=== PATIENT | female | born 1965 | race American Indian/Alaskan Native ===

== ENCOUNTER 2019-09-25 17:23 | Emergency (ER) | payer SELFPAY ==
[2019-09-25] MEDS ORDERED: oxyCODONE /ACETAMINOPHEN 5-325MG TAB PO ONE (19:20)
[2019-09-25 19:46] LABS: Hematocrit 35.3 % (30.3-42.9); Hemoglobin 11.5 gm/dl (10.1-14.3); Mean Corpuscular HGB Conc 33 % (30-34); Mean Corpuscular Volume 96 fl (79-97); Platelet Count 228 K/mm3 (140-440); Red Blood Count 3.69 M/mm3 (3.65-5.03); Red Cell Distribution Width 17.2 % (13.2-15.2)
[2019-09-25 20:06] LABS: BUN/Creatinine Ratio 15; Blood Urea Nitrogen 9 mg/dL (7-17); Calcium 9.1 mg/dL (8.4-10.2); Hemolysis Index 9
[2019-09-25] MEDS ORDERED: POTASSIUM CHLORIDE ER 20 MEQ TAB PO ONE (20:08)
[2019-09-25] MEDS ORDERED: MAGNESIUM OXIDE 400 MG TAB PO ONE (20:08)
[2019-09-25 20:30] LABS: Total Cells Counted 100
[2019-09-25 20:31] LABS: Basophils % (Manual) 0 % (0.0-1.8)
[2019-09-25 20:32] LABS: Anisocytosis Few; Platelet Estimate Consistent w Auto
--- NOTE | 2019-09-25 20:52 | Emergency Department Report ---
ED Extremity Problem HPI - General Chief complaint: Extremity Problem,Nontraumatic Stated complaint: LEG PAIN Time Seen by Provider: 09/25/19 18:35 Source: patient, family, EMS Mode of arrival: Stretcher Limitations: No Limitations - History of Present Illness Initial comments: 54-year-old female with a past medical history of migraines, CHF, hypertension, A. fib, anxiety, major depressive disorder as well as chronic pains presents to hospital complaining of ongoing bilateral thigh and hamstring pain since exercising. Patient has been wheelchair-bound and unable to ambulate with a cognitive deficit/memory problem since gallbladder removal surgery and June. Patient has had bilateral leg pain for the past 3 weeks since she has been undergoing h physical therapy at home in [place]. Patient has been in the [place] area for the past week and been trying to continue her physical therapy exercises at home. Patient states that today while exercising the pain has worsened and rated 9/10 in intensity. Patient is on Eliquis and has been com pliant. No reports of chest pain or shortness of breath. It is unclear patient is on chronic pain medication in [place] but apparently she does not have any pain medications currently. Patient also complains of pain and burning sensation to bilateral feet. Severity scale (0 -10): 9 - Related Data Previous Rx's Medication Instructions Recorded Last Taken Type Docusate Sodium [Colace] 100 mg PO BID PRN #20 capsule 09/25/19 Unknown Rx HYDROcodone/APAP 5-325 [[place] 1 each PO Q6HR PRN #20 tablet 09/25/19 Unknown Rx 5/325] Magnesium Oxide [Magnesium] 400 mg PO BID #8 capsule 09/25/19 Unknown Rx Potassium Chloride [K-Dur] 20 meq PO BID #8 tab 09/25/19 Unknown Rx Allergies Allergy/AdvReac Type Severity Reaction Status Date / Time codeine Allergy Swelling Verified 09/25/19 17:52 ED Review of Systems ROS: Stated complaint: LEG PAIN Other details as noted in HPI Comment: All other systems reviewed and negative ED Past Medical Hx - Past Medical History Previous Medical History?: Yes Hx Hypertension: Yes Hx Congestive Heart Failure: Yes Hx Headaches / Migraines: Yes Hx Psychiatric Treatment: (MDD, anxiety) Additional medical history: Afib - Surgical History Past Surgical History?: Yes Hx Cholecystectomy: Yes Additional Surgical History: hernia - Social History Smoking Status: Never Smoker Substance Use Type: None - Medications Home Medications: Home Medications Medication Instructions Recorded Confirmed Last Taken Type Docusate Sodium [Colace] 100 mg PO BID PRN #20 capsule 09/25/19 Unknown Rx HYDROcodone/APAP 5-325 [[place] 1 each PO Q6HR PRN #20 tablet 09/25/19 Unknown Rx 5/325] Magnesium Oxide [Magnesium] 400 mg PO BID #8 capsule 09/25/19 Unknown Rx Potassium Chloride [K-Dur] 20 meq PO BID #8 tab 09/25/19 Unknown Rx ED Physical Exam - General Limitations: No Limitations - Other Other exam information: General: No acute distress Head: Atraumatic Eyes: normal appearance ENT: Moist mucous membranes Neck: Normal appearance, no midline tenderness Chest: Clear to auscultation bilaterally CV: Regular rate and rhythm Abdomen: Soft, normal bowel sounds, nontender, nondistended, no rebound or guarding Back: Normal inspection Extremity: No edema noted. Patient able to lift both legs off the bed but unable to sustain this movement. No calf tenderness, no leg edema, no leg asymmetry. Positive tenderness to palpation of her anterior thigh muscles and hamstrings. No joint tenderness to hip, knee, or ankles. 2+ bilateral DP pulses. Neuro: Alert O x 3, no facial asymmetry, speech clear, no gross motor sensory deficit Psych: Appropriate behavior Skin: No rash ED Course Vital Signs 09/25/19 09/25/19 09/25/19 18:13 18:14 21:36 Temperature 98.8 F Pulse Rate 107 H 84 Respiratory 16 16 16 Rate Blood Pressure 133/81 102/62 [Left] O2 Sat by Pulse 100 98 Oximetry ED Medical Decision Making - Lab Data Result diagrams: 09/25/19 19:28 09/25/19 19:28 Lab Results 09/25/19 09/25/19 Range/Units 19:28 19:28 WBC 4.9 (4.5-11.0) K/mm3 RBC 3.69 (3.65-5.03) M/mm3 Hgb 11.5 (10.1-14.3) gm/dl Hct 35.3 (30.3-42.9) % MCV 96 (79-97) fl MCH 31 (28-32) pg MCHC 33 (30-34) % RDW 17.2 H (13.2-15.2) % Plt Count 228 (140-440) K/mm3 [place] % (Auto) Manager Floral Add Manual Diff Complete Total Counted 100 Seg Neuts % (Manual) 57.0 (40.0-70.0) % Band Neutrophils % 0 % Lymphocytes % (Manual) 31.0 (13.4-35.0) % Reactive Lymphs % (Man) 0 % Monocytes % (Manual) 9.0 H (0.0-7.3) % Eosinophils % (Manual) 3.0 (0.0-4.3) % Basophils % (Manual) 0 (0.0-1.8) % Metamyelocytes % 0 % Myelocytes % 0 % Promyelocytes % 0 % Blast Cells % 0 % Nucleated RBC % Not Reportable Seg Neutrophils # Man 2.8 (1.8-7.7) K/mm3 Band Neutrophils # 0.0 K/mm3 Lymphocytes # (Manual) 1.5 (1.2-5.4) K/mm3 Abs React Lymphs (Man) 0.0 K/mm3 Monocytes # (Manual) 0.4 (0.0-0.8) K/mm3 Eosinophils # (Manual) 0.1 (0.0-0.4) K/mm3 Basophils # (Manual) 0.0 (0.0-0.1) K/mm3 Metamyelocytes # 0.0 K/mm3 Myelocytes # 0.0 K/mm3 Promyelocytes # 0.0 K/mm3 Blast Cells # 0.0 K/mm3 WBC Morphology Not Reportable Hypersegmented Neuts Not Reportable Hyposegmented Neuts Not Reportable Hypogranular Neuts Not Reportable Smudge Cells Not Reportable Toxic Granulation Not Reportable Toxic Vacuolation Not Reportable Dohle Bodies Not Reportable Pelger-Huet Anomaly Not Reportable Mary Rods Not Reportable Platelet Estimate Consistent w auto Clumped Platelets Not Reportable Plt Clumps, EDTA Not Reportable Large Platelets Not Reportable Giant Platelets Not Reportable Platelet Satelliting Not Reportable Plt Morphology Comment Not Reportable RBC Morphology Not Reportable Dimorphic RBCs Not Reportable Polychromasia Not Reportable Hypochromasia Not Reportable Poikilocytosis Not Reportable Anisocytosis Few Microcytosis Not Reportable Macrocytosis Not Reportable Spherocytes Not Reportable Pappenheimer Bodies Not Reportable Sickle Cells Not Reportable Target Cells Not Reportable Tear Drop Cells Not Reportable Ovalocytes Not Reportable Helmet Cells Not Reportable Melo-[place] Bodies Not Reportable [place] Rings Not Reportable [place] Cells Not Reportable Bite Cells Not Reportable Crenated Cell Not Reportable Elliptocytes Not Reportable Acanthocytes (Spur) Not Reportable Rouleaux Not Reportable Hemoglobin C Crystals Not Reportable Schistocytes Not Reportable Malaria parasites Not Reportable Haresh Bodies Not Reportable Hem Pathologist Commnt No Sodium 143 (137-145) mmol/L Potassium 3.0 L (3.6-5.0) mmol/L Chloride 109.1 H (98-107) mmol/L Carbon Dioxide 20 L (22-30) mmol/L Anion Gap 17 mmol/L BUN 9 (7-17) mg/dL Creatinine 0.6 L (0.7-1.2) mg/dL Estimated GFR > 60 ml/min BUN/Creatinine Ratio 15 % Glucose 104 H (65-100) mg/dL Calcium 9.1 (8.4-10.2) mg/dL Magnesium 1.60 L (1.7-2.3) mg/dL - Medical Decision Making Patient has c chronic musculoskeletal leg pain associated with leg exercising. She also reports some burning discomfort to her feet suggestive of possible neuropathy. Patient's pain improved with Percocet in the ED. No leg asymmetry or edema to suggest DVT and patient is also chronically on Eliquis. Initial tachycardia improved with pain relief. Patient has mild electrolyte abno rmalities including hypokalemia and hypomagnesemia which were supplemented in the ED. Patient will be discharged home pain medication and additional electrolyte medication. - Differential Diagnosis Electrolyte abnormality, chronic pain, muscle strain Critical Care Time: No Critical care attestation.: If time is entered above; I have spent that time in minutes in the direct care of this critically ill patient, excluding procedure time. ED Disposition Clinical Impression: Musculoskeletal leg pain, Chronic anticoagulation, Hypokalemia, Hypomagnesemia, Wheelchair bound Disposition: DC-01 TO HOME OR SELFCARE Is pt being admited?: No Condition: Stable Instructions: Musculoskeletal Pain (ED), Hypokalemia (ED), Hypomagnesemia (ED) Additional Instructions: Take the medication as prescribed. Follow-up with your doctor or doctor/clinic provided. Return if symptoms worsen as indicated by your discharge instructions. Prescriptions: Docusate Sodium [Colace] 100 mg PO BID PRN #20 capsule PRN Reason: Constipation Potassium Chloride [K-Dur] 20 meq PO BID #8 tab Magnesium Oxide [Magnesium] 400 mg PO BID #8 capsule HYDROcodone/APAP 5-325 [[place] 5/325] 1 each PO Q6HR PRN #20 tablet PRN Reason: Pain Referrals: PRIMARY CAREMD [Primary Care Provider] - 3-5 Days KEITH PATTON MD [Staff Physician] - 3-5 Days Time of Disposition: 21:51
[2019-09-25 21:37] VITALS: BP 102/62
== END 2019-09-25 22:30 | disposition home or self-care (01) ==
LOC: ED 17:23
DX: E87.6 Hypokalemia (principal); E83.42 Hypomagnesemia; M79.606 Pain in leg, unspecified; I11.0 Hypertensive heart disease with heart failure; I50.9 Heart failure, unspecified; F32.9 Major depressive disorder, single episode, unspecified; G43.909 Migraine, unspecified, not intractable, without status migrainosus; I48.91 Unspecified atrial fibrillation; G89.29 Other chronic pain; Z98.890 Other specified postprocedural states; Z90.49 Acquired absence of other specified parts of digestive tract; Z79.899 Other long term (current) drug therapy; Z79.01 Long term (current) use of anticoagulants; Z88.1 Allergy status to other antibiotic agents; Z88.2 Allergy status to sulfonamides
CPT/HCPCS: 36415; 80048; 83735; 85007; 85025; 99284